=== PATIENT | female | born 1975 | race Caucasian/White ===

== ENCOUNTER 2022-02-18 10:24 | Outpatient (CLI) | payer OTHER, SELFPAY ==
[2022-02-18 10:47] LABS: Hematocrit 32.4 % (33.0-51.0); Hemoglobin* 10.3 gm/dL (12.0-16.0); Mean Corpuscular HGB Conc 32 gm/dL (32-36); Mean Corpuscular Hemoglobin 25 pg (26-34); Mean Corpuscular Volume 80 fL (80-100); Platelet Count* 286 K/uL (140-440); Red Blood Count 4.06 m/uL (4.00-5.20); White Blood Count* 4.94 K/uL (4.50-11.00)
[2022-02-18 11:20] LABS: Slide Review Reflex No
[2022-02-18 11:45] LABS: HCG Qualitative Serum* Negative (Negative)
[2022-02-18 14:40] LABS: Cholesterol* 257 mg/dL (90-199); Triglycerides* 62 mg/dL (40-149)
[2022-02-18 14:57] LABS: HDL Cholesterol* 159 mg/dL (>=50); LDL Cholesterol Calculated 86 mg/dL (<100)
== END 2022-02-18 10:25 | disposition home or self-care (01) ==
LOC: LAB 10:26
PROVIDERS: PCP Family Medicine; Visit Provider Registered Nurse
DX: N92.0 Excessive and frequent menstruation with regular cycle (principal); D64.9 Anemia, unspecified; Z13.9 Encounter for screening, unspecified
CPT/HCPCS: 36415; 80061; 84443; 84703; 85027

== ENCOUNTER 2022-03-13 15:54 | Outpatient (CLI) | payer OTHER, SELFPAY ==
[2022-03-13 13:10] LABS: Iron* 35 ug/dL (37-170)
[2022-03-13 13:20] LABS: Percent Iron Saturation 8 % (20-50); Total Iron Binding Capacity 465 ug/dL (265-497)
[2022-03-13 13:46] LABS: Ferritin* 7.2 ng/mL (6.24-137.0)
== END 2022-03-13 15:55 | disposition home or self-care (01) ==
PROVIDERS: PCP Family Medicine; Visit Provider Registered Nurse
DX: D64.9 Anemia, unspecified (principal)
CPT/HCPCS: 82728; 83540; 83550

== ENCOUNTER 2022-03-18 14:23 | Outpatient (CLI) | payer OTHER, SELFPAY ==
--- NOTE | 2022-03-18 15:00 | CRLHL7_ITS ---
For Patients: As a result of the Century Cures Act, medical imaging exams and procedure reports are released immediately into your electronic medical record. You may view this report before your referring provider. If you have questions, please contact your health care provider. INDICATION: HEAVY MENSTRUAL BLEEDING COMPARISON: none TECHNIQUE: 2D wolfe scale and color Doppler images were acquired of the pelvis using a transabdominal and transvaginal approach. FINDINGS: Sonographic images demonstrate a normal size and smooth outer contour of the uterus. Uterus measures 8.7 cm in length by 4.7 cm in AP diameter by 4.9 cm in transverse dimension. The myometrium has a normal uniform echotexture. The endometrial lining measures 11 mm in composite thickness. The right ovary measures 2.6 x 1.4 x 1.8 cm in size and the left ovary measures 2.4 x 1.5 x 1.6 cm. The ovaries demonstrate normal arterial and venous blood flow on color Doppler analysis. There are no suspicious fluid collections within the cul-de-sac. IMPRESSION: Endometrial thickness 11 millimeters. Dictated by Oliver Mccloud MD @ 03/19/2022 8:55:14 AM (Electronically Signed)
== END 2022-03-18 14:24 | disposition home or self-care (01) ==
LOC: US 14:24
PROVIDERS: PCP Family Medicine; Visit Provider Registered Nurse
DX: N92.0 Excessive and frequent menstruation with regular cycle (principal); R93.89 Abnormal findings on diagnostic imaging of other specified body structures
CPT/HCPCS: 76830; 76856

== ENCOUNTER 2023-02-17 15:40 | Outpatient (CLI) | payer BC, SELFPAY | END 2023-02-17 15:41 | disposition home or self-care (01) | PROVIDERS: PCP Family Medicine; Visit Provider Family Medicine | DX: Z00.00 Encounter for general adult medical examination without abnormal findings (principal); D50.9 Iron deficiency anemia, unspecified; Z13.6 Encounter for screening for cardiovascular disorders; Z13.9 Encounter for screening, unspecified | CPT/HCPCS: 80048; 80061; 82728; 84460; 85025 ==

== ENCOUNTER 2023-03-20 14:00 | Outpatient (RCR) | payer BC, SELFPAY ==
[2023-03-10 13:26] VITALS: BP 120/82; PULSE 75; RESP 16; TEMP 36.1; O2SAT 100
[2023-03-10] MEDS: IRON SUCROSE COMPLEX 200 MG in 0.9 % SODIUM CHLORIDE 100 ml 440 MG IVPB (13:50)
[2023-03-10] MEDS: SODIUM CHLORIDE 0.9 % (FLUSH) 10 ML SYRINGE IVF (14:36)
[2023-03-10] MEDS: 0.9 % SODIUM CHLORIDE 250 ml IV (14:36)
[2023-03-12 13:59] VITALS: BP 111/74; PULSE 89; RESP 16; TEMP 37.1; O2SAT 98
[2023-03-12] MEDS: 0.9 % SODIUM CHLORIDE 250 ml IV (14:17)
[2023-03-12] MEDS: IRON SUCROSE COMPLEX 200 MG in 0.9 % SODIUM CHLORIDE 100 ml 440 MG IVPB (14:17)
[2023-03-12] MEDS: SODIUM CHLORIDE 0.9 % (FLUSH) 10 ML SYRINGE IVF (14:18)
[2023-03-12 15:08] VITALS: BP 114/73; PULSE 80; RESP 16; TEMP 36.4; O2SAT 98
[2023-03-14 13:18] VITALS: BP 119/80; PULSE 82; RESP 16; TEMP 36.2; O2SAT 98
[2023-03-14] MEDS: 0.9 % SODIUM CHLORIDE 250 ml IV (13:37)
[2023-03-14] MEDS: IRON SUCROSE COMPLEX 200 MG in 0.9 % SODIUM CHLORIDE 100 ml 440 MG IVPB (13:37)
[2023-03-14] MEDS: SODIUM CHLORIDE 0.9 % (FLUSH) 10 ML SYRINGE IVF (13:37)
[2023-03-18 13:55] VITALS: BP 126/80; PULSE 73; RESP 16; TEMP 37; O2SAT 96
[2023-03-18] MEDS: IRON SUCROSE COMPLEX 200 MG in 0.9 % SODIUM CHLORIDE 100 ml 440 MG IVPB (14:43)
[2023-03-18] MEDS: 0.9 % SODIUM CHLORIDE 250 ml IV (14:43)
[2023-03-18] MEDS: SODIUM CHLORIDE 0.9 % (FLUSH) 10 ML SYRINGE IVF (14:44)
[2023-03-18 15:18] VITALS: BP 119/78; PULSE 72; RESP 16; TEMP 36.9; O2SAT 96
[2023-03-20 09:08] VITALS: BP 135/86; PULSE 85; RESP 16; TEMP 36.2; O2SAT 97
[2023-03-20] MEDS: 0.9 % SODIUM CHLORIDE 250 ml IV (09:16)
[2023-03-20] MEDS: SODIUM CHLORIDE 0.9 % (FLUSH) 10 ML SYRINGE IVF (09:16)
[2023-03-20] MEDS: IRON SUCROSE COMPLEX 200 MG in 0.9 % SODIUM CHLORIDE 100 ml 440 MG IVPB (09:26)
[2023-03-20 10:11] VITALS: BP 120/82; PULSE 66; RESP 16; TEMP 36.3; O2SAT 99
== END 2023-09-06 23:59 | disposition home or self-care (01) ==
LOC: CCIC 14:00
PROVIDERS: PCP Family Medicine; Referring Provider Family Medicine; Visit Provider Family Medicine
DX: D50.9 Iron deficiency anemia, unspecified (principal)
CPT/HCPCS: 96365; 96374; J1756; J7050

== ENCOUNTER 2023-04-21 13:54 | Outpatient (CLI) | payer BC, SELFPAY | END 2023-04-21 13:55 | disposition home or self-care (01) | LOC: NFLDREF 04-25 12:05 | PROVIDERS: PCP Family Medicine; Referring Provider Family Medicine; Visit Provider Family Medicine | DX: D50.9 Iron deficiency anemia, unspecified (principal) | CPT/HCPCS: 82728 ==

== ENCOUNTER 2023-11-07 14:35 | Outpatient (CLI) | payer BC, SELFPAY | END 2023-11-07 14:36 | disposition home or self-care (01) | LOC: NFLDREF 14:36 | PROVIDERS: PCP Family Medicine; Visit Provider Family Medicine | DX: D50.9 Iron deficiency anemia, unspecified (principal) | CPT/HCPCS: 82728 ==

== ENCOUNTER 2024-01-01 07:44 | Outpatient (CLI) | payer BC, SELFPAY ==
--- NOTE | 2024-01-01 08:15 | CRLHL7_ITS ---
For Patients: As a result of the Century Cures Act, medical imaging exams and procedure reports are released immediately into your electronic medical record. You may view this report before your referring provider. If you have questions, please contact your health care provider. BILATERAL SCREENING MAMMOGRAM WITH COMPUTER-AIDED DETECTION AND TOMOSYNTHESIS TECHNIQUE: CC and MLO views were obtained. These mammographic images have been obtained using full-field digital technique. These mammographic images were interpreted with the benefit of computer-aided detection. Breast tomosynthesis was used in this interpretation. COMPARISON FILM: 11/11/22, 03/20/21, 05/20/18. FINDINGS: The breasts are heterogeneously dense, which may obscure small masses. IMPRESSION: There is no radiographic evidence for malignancy. ASSESSMENT: BI-RADS Category 1: Negative RECOMMENDATION: Routine screening mammogram in 1 year. A lay language report of this examination will be provided to the patient. OLIVER JOHNSON M.D. Diagnostic Radiologist [email or web address] Transcribed: 2:[address]/Dictated by: Oliver Johnson MD @ 01/01/2024 10:18:00 AM (Electronically Signed)
== END 2024-01-01 07:45 | disposition home or self-care (01) ==
PROVIDERS: PCP Family Medicine; Visit Provider Family Medicine
DX: Z12.31 Encounter for screening mammogram for malignant neoplasm of breast (principal); R92.2 Inconclusive mammogram
CPT/HCPCS: 77063; 77067

== ENCOUNTER 2024-09-21 16:17 | Outpatient (CLI) | payer BC, SELFPAY | END 2024-09-21 16:18 | disposition home or self-care (01) | PROVIDERS: PCP Family Medicine; Visit Provider Registered Nurse | DX: R00.2 Palpitations (principal); R39.14 Feeling of incomplete bladder emptying | CPT/HCPCS: 84443; 87086 ==

== ENCOUNTER 2025-01-03 13:37 | Outpatient (CLI) | payer BC, SELFPAY ==
--- NOTE | 2025-01-03 14:00 | CRLHL7_ITS ---
For Patients: As a result of the Century Cures Act, medical imaging exams and procedure reports are released immediately into your electronic medical record. You may view this report before your referring provider. If you have questions, please contact your health care provider. INDICATION: BILATERAL SCREENING MAMMOGRAM, ASYMPTOMATIC 49 Y/O FEMALE COMPARISON: 01/01/2024, 12/30/2022, 12/18/2021 TECHNIQUE: Digital mammogram in CC and MLO projections including computer-aided detection (CAD) and tomosynthesis. BREAST COMPOSITION: There are scattered areas of fibroglandular density. FINDINGS: No suspicious findings. ASSESSMENT: BI-RADS 1 Negative RECOMMENDATION: Annual screening mammogram. A lay language report of this examination will be provided to the patient. Dictated by: Marybeth Bryan MD @ 01/04/2025 14:41:22 (Electronically Signed)
== END 2025-01-03 13:38 | disposition home or self-care (01) ==
LOC: MAMMO 13:37
PROVIDERS: PCP Family Medicine; Visit Provider Family Medicine
DX: Z12.31 Encounter for screening mammogram for malignant neoplasm of breast (principal)
CPT/HCPCS: 77063; 77067